=== PATIENT | female | born 1930 | race Caucasian/White ===

== ENCOUNTER → 2018-10-15 | Outpatient (CLI) | payer MEDICARE ==
[~2018-10-15] MED LIST: CALC-656 PO; CHOL200035 PO; CYAN10007 PO; MULT1CAP27 PO; NAPR220T76 PO; OXYC-12 PO; PRD5T PO; VIT1TABL26 PO; [UNRECOGNIZED DRUG - OTHER] PO
[2018-10-15 13:03] LABS: INR 1.3 (0.8-1.4); PROTHROMBIN TIME PATIENT 16.3 SEC (12.2-14.7)
== END ==
LOC: LAB FS 11:26
PROVIDERS: ATTEND Family Medicine
DX: Z01.89 Encounter for other specified special examinations (principal); Z79.01 Long term (current) use of anticoagulants
CPT/HCPCS: 36415; 85610